=== PATIENT | male | born 1995 ===

== ENCOUNTER 2017-12-06 12:31 | Day surgery (SDC) | payer OTHER ==
[~2017-12-06 12:31] MED LIST: Acetaminophen TAB* 325 MG PO PRN; Buffered Lidocaine 0.9% SYRIN* 5 ML/SYR SYRINGE INTRADERM ONE; Famotidine IV* 10 MG/ML 2 ML (20 mg) IV ONE; HYDROmorphone INJ* 1 MG/ML CARPUJECT SYRINGE IV PRN; Naloxone* 0.4 MG/ML 1 ML VIAL IV PRN; Ondansetron INJ* 2 MG/ML VIAL IV PRN; oxyCODONE TAB* 5 MG TAB PO PRN
[2017-12-06] MEDS ORDERED: Famotidine IV* 10 MG/ML 2 ML (20 mg) ONE (12:34)
[2017-12-06] MEDS ORDERED: ceFAZolin 2 GM PREMIX (*) 2 GM/50 ML BAG IVPB ONE (12:34)
[2017-12-06] MEDS ORDERED: fentaNYL* 50 MCG/ML 2 ML VIAL (100 MCG VIAL) ONE ×2 (13:17→15:34)
[2017-12-06] MEDS ORDERED: Midazolam* 1 MG/ML 5 ML VIAL (5 MG) ONE (13:17)
[2017-12-06] MEDS ORDERED: Bupivacaine 0.25% SDV* 30 ML ONE (14:21)
[2017-12-06] MEDS ORDERED: Ketorolac INJ* 30 MG/ML 1 ML VIAL ONE (15:38)
[2017-12-06] MEDS ORDERED: Lidocaine 2% PF * 5 ML VIAL ONE (15:38)
[2017-12-06] MEDS ORDERED: Propofol* 10 MG/ML 20 ML BTL IV PUSH ONE (15:38)
[2017-12-06] MEDS ORDERED: Dexamethasone IV* 4 MG/ML 1 ML (4 MG) ONE (15:39)
[2017-12-06] MEDS ORDERED: HYDROcodone/ACETAMIN 5-325 MG* 1 TAB ONE (16:19)
[2017-12-06 16:32] VITALS: BP 109/66
--- NOTE | 2017-12-07 16:33 | OP ---
OPERATIVE REPORT: DATE OF OPERATION: 12/06/17 DATE OF : 89 SURGEON: Cezar Ruffin MD ASSISTANTS: PER Gould and PER Mary student. ANESTHESIOLOGIST: Dr. Montes. ANESTHESIA: General. PRE-OP DIAGNOSIS: Right 5th displaced metacarpal neck fracture. POST-OP DIAGNOSIS: Right 5th displaced metacarpal neck fracture. OPERATIVE PROCEDURE: Closed reduction and percutaneous pinning of right 5th metacarpal neck fracture. INDICATIONS: Joey has a fracture that is about 80 degrees displaced or angulated. We had talked about risks and benefits. They wanted to proceed with pinning. ESTIMATED BLOOD LOSS: 1 mL. COMPLICATIONS: None. FINDINGS: As expected. DESCRIPTION OF PROCEDURE: Joey was seen in the preoperative holding area. The correct side, site and procedure were identified. We came back to the operating room. The arm was scrubbed and then prepped and draped in the usual fashion. A time-out was performed. I closed reduced the fracture. I placed one 0.045 K-wire from distal ulnar exiting out the proximal, radial, and volar cortex. A second distal radial 0.045 K-wire was driven down to the subchondral bone. The alignment was very nice. Everything was looking good and anatomic. We went ahead and bent and clipped the pins. Pins were approximately dressed and ulnar gutter splint was applied. Tourniquet was not used. Patient was awoken up and taken to the recovery room in stable condition. [id number] #: [id number] MTDD
== END 2017-12-06 16:57 | disposition home or self-care (01) ==
LOC: OREAST 12:31
PROVIDERS: ATTEND Orthopaedic Surgery Hand Surgery
DX: S62.336A Displaced fracture of neck of fifth metacarpal bone, right hand, initial encounter for closed fracture (principal); W21.09XA Struck by other hit or thrown ball, initial encounter; Y93.69 Activity, other involving other sports and athletics played as a team or group; Y92.328 Other athletic field as the place of occurrence of the external cause; Z87.891 Personal history of nicotine dependence
CPT/HCPCS: C1776; J0690; J1100; J1885; J2250; J2704; J3010